=== PATIENT | female | born 1960 | race Caucasian/White ===

== ENCOUNTER 2017-01-16 09:49 | Observation (INO) ==
[2017-01-16] MEDS ORDERED: Ondansetron 4 MG/2 ML VIAL IV ONE (10:23)
[2017-01-16] MEDS ORDERED: *HR* Morphine 2 MG/ML SYRINGE IV ONE (10:23)
[2017-01-16] MEDS ORDERED: Aspirin 81 MG TAB.CHEW PO ONE (10:23)
[2017-01-16 10:35] LABS: INR 2.4; Prothrombin Time 26.3 Seconds (9.4-12.1)
[2017-01-16 10:36] LABS: Basophils # 0.1 K/mcL (0.0-0.2); Eosinophils # 0.1 K/mcL (0.0-0.6); Eosinophils % 0.9 %; Hematocrit 42.1 % (35.3-44.9); Hemoglobin 13.9 g/dL (11.5-15.4); Immature Granulocytes % 0.2 % (0-4); Lymphocytes # 0.7 K/mcL (0.6-4.6); Mean Corpuscular Hemoglobin 27.2 pg (28.0-33.3); Mean Corpuscular Volume 82.4 fL (83.0-100.0); Mean Platelet Volume 11.2 fL (9.4-12.4); Monocytes # 0.5 K/mcL (0.0-1.3); Monocytes % 7.8 %; Neutrophils # 4.5 K/mcL (1.6-8.9); Platelet Count 228 K/mcL (140-400); Red Blood Count 5.11 M/mcL (3.82-4.97); Red Cell Distribution Width 19.1 % (11.5-14.5); Segmented Neutrophils % 78.1 %
[2017-01-16 10:46] LABS: Alanine Aminotransferase 22 Units/L (0-55); Albumin 3.6 g/dL (3.5-5.0); Albumin/Globulin Ratio 0.9 (1.1-2.2); Alkaline Phosphatase 92 Units/L (38-126); Aspartate Amino Transferase 17 Units/L (5-34); BUN/Creatinine Ratio 11 (6-26); Bilirubin,Direct 0.3 mg/dL (0.0-0.5); Bilirubin,Indirect 0.4 mg/dL (0.0-1.2); Bilirubin,Total 0.7 mg/dL (0.2-1.2); Blood Urea Nitrogen 9 mg/dL (7-20); Calcium 9.2 mg/dL (8.6-10.8); Carbon Dioxide 24 mEq/L (19-29); Chloride 105 mEq/L (98-109); Globulin 3.9 g/dL (2.4-3.5); Glucose 97 mg/dL (70-99); Lipase 12 Units/L (8-78); Osmolality,Calculated 287 (280-300); Potassium 3.8 mEq/L (3.5-4.5); Sodium 139 mEq/L (136-145); Total Protein 7.5 g/dL (6.0-8.3); eGFR For African Americans > 60 (> 60); eGFR For Non-African Americans > 60 (> 60)
[2017-01-16] MEDS ORDERED: 0.9 % Sodium Chloride 1,000 ML IVC ONE (11:09)
[2017-01-16 11:34] LABS: Bilirubin,Urine Negative (Negative); Blood,Urine Negative (Negative); Clarity,Urine Cloudy (Clear); Color,Urine Dark Yellow (Yellow); Glucose,Urine (UA) Normal (Normal); Ketones,Urine Trace mg/dL (Negative); Leukocyte Esterase,Urine Small (Negative); Nitrite,Urine Positive (Negative); PH,Urine 7.5 pH Units (5.0-8.0); Protein,Urine Trace mg/dL (Neg-Trace); Specific Gravity,Urine 1.026 (1.010-1.025); Urobilinogen,Urine Normal (Normal)
[2017-01-16 11:37] LABS: Bacteria,Urine Many per hpf (None-Few); Squamous Epithelial Cell,Urine Many per lpf (None-Few); WBC,Urine 30-50 per hpf (0-3)
[2017-01-16 11:52] LABS: Mucus,Urine Few (Few); RBC,Urine 0-3 per hpf (0-3)
--- NOTE | 2017-01-16 12:18 | Emergency Department Note ---
Disposition Clinical Impression: Chest pain Qualifiers: Chest pain type: precordial pain Qualified Code(s): R07.2 - Precordial pain Disposition: Still a Patient Condition: Good Referrals: Nguyễn Avila MD [Primary Care Provider] - Forms: ED Satisfaction Letter Chest Pain HPI - General Chief Complaint: ED Chest Pain Stated Complaint: chest pain Time Seen by Provider: 01/16/17 10:12 Source: patient, family Mode of arrival: private vehicle Limitations: no limitations Vital Signs Reviewed: Yes Nursing Notes Reviewed: Yes - History of Present Illness Pt complaint: chest pain Onset (ago): Just [employer]ED [employer]MER Duration: constant Onset: during rest Pain Location: substernal Severity: severe Severity scale (1-10): 10 Quality: sharp Pain Radiation: RUE (shoulder) Improves with: nothing Worsens with: nothing Context: history of DVT/PE Associated symptoms: Reports: dyspnea (now resolved - lasted about 15 seconds). Denies: nausea, vomiting, diaphoresis, syncope, palpitations, fever, cough, leg swelling Treatments prior to arrival chest pain: none - Related Data On Oral Contraceptives: No Home Medications Medication Instructions Recorded Confirmed Citalopram Hydrobromide [Celexa] 40 mg PO DAILY 05/02/16 05/02/16 Diazepam [Valium] 5 mg PO TID PRN 05/02/16 05/02/16 Doxepin HCl 50 mg PO HS 05/02/16 05/02/16 Lisinopril-HCTZ 10-12.5 [Prinzide 1 each PO DAILY 05/02/16 05/02/16 10-12.5] Oxycodone HCl/Acetaminophen 1 each PO Q6H PRN 05/02/16 05/02/16 [Percocet 7.5-325 mg Tablet] Ranitidine HCl [Heartburn Relief] 150 mg PO DAILY 05/02/16 05/02/16 Warfarin [Coumadin] 5 mg PO DAILY 05/02/16 05/02/16 Previous Rx's Medication Instructions Recorded Ondansetron HCl [Zofran] 4 mg PO Q4HR PRN #10 tablet 09/01/16 Oxycodone HCl/Acetaminophen 1 each PO QID PRN #12 tablet 12/29/16 [Percocet 5-325 mg Tablet] Valacyclovir [Valtrex] 1,000 mg PO TID #42 tablet 12/29/16 Allergies Allergy/AdvReac Type Severity Reaction Status Date / Time iodine Allergy Hives Verified 01/16/17 10:00 NSAIDS (Non-Steroidal AdvReac Unknown See Verified 01/16/17 10:00 Anti-Inflamma Comments All systems ED: reviewed and negative except as stated. Constitutional: Denies: fever, chills, weakness Eyes: Denies: vision change ENT ED: Denies: congestion Cardiovascular: Reports: as per HPI, chest pain. Denies: palpitations, dyspnea on exertion, orthopnea, syncope Respiratory: Reports: as per HPI, dyspnea. Denies: cough, wheezes, hemoptysis, stridor, sputum production Gastrointestinal: Denies: abdominal pain, nausea, vomiting Genitourinary: Denies: urgency, dysuria, frequency Musculoskeletal: Denies: back pain, neck pain, joint swelling Integumentary: Denies: rash Neurological: Denies: headache, weakness, numbness, paresthesias, confusion, abnormal gait, vertigo Hematological/Lymphatic: Reports: easy bleeding, easy bruising Chest Pain PMH - Past Medical History Medical history: Reports: DVT, hyperlipidemia, hypertension Psychiatric history: Reports: anxiety OCCUPATIONAL HEALTH PHYSICIAN history: Reports: no OCCUPATIONAL HEALTH PHYSICIAN history - Social History Smoking Status: Never smoker Alcohol use: Reports: none Drug use: Reports: none Physical Exam - General Limitations: no limitations General appearance: alert, in no apparent distress, anxious - Head Head exam: atraumatic, normocephalic, normal inspection - Eye Eye exam: Present: normal appearance, PERRL. Absent: scleral icterus, conjunctival injection, periorbital swelling - ENT ENT exam: mucous membranes dry - Neck Neck exam: Present: normal inspection, full ROM, trachea midline. Absent: meningismus, lymphadenopathy - Chest Chest inspection: Present: normal inspection, symmetric chest wall rise - Respiratory Respiratory exam: Present: normal lung sounds bilaterally. Absent: respiratory distress, wheezes, stridor, accessory muscle use, prolonged expiratory phase - Cardiovascular Cardiovascular exam: Present: regular rate, normal rhythm, normal heart sounds - Abdominal Exam Abdominal exam: Present: soft, Non-Tender. Absent: mass, pulsatile mass - Extremities Exam Extremities exam: Present: normal capillary refill, pedal edema (mild) - Neurological Exam Neurological exam: Present: alert, oriented X3, CN II-XII intact - Psychiatric Psychiatric exam: Present: normal affect, anxious - Skin Skin exam: Present: warm, dry, intact, normal color Course Course Narrative: Patient has chest pain that began acutely this AM. She also felt short of breath for "about 15 seconds". She has never had a heart cath and was unable to complete a stress test x 2 due to back problems. We will treat her pain and check labs, ECG and CXR. Case has been discussed with Dr. Arthur. He will assume care of this patient at 11:00. Case admitted to /discussed w/ Dr Guerrero @ 1:35 pm; Vital Signs Temperature 98.2 F 01/16/17 09:52 Pulse Rate 100 01/16/17 09:52 Respiratory Rate 17 01/16/17 09:52 Blood Pressure 125/84 01/16/17 09:52 O2 Sat by Pulse Oximetry 98 01/16/17 09:52 Temperature 98.2 F 01/16/17 09:52 Pulse Rate 93 01/16/17 13:14 Respiratory Rate 18 01/16/17 13:14 Blood Pressure 115/84 01/16/17 13:14 O2 Sat by Pulse Oximetry 96 01/16/17 13:14 Oxygen Delivery Oxygen Delivery Room Air Chest Pain - Lab Data Result diagrams: 01/16/17 10:19 01/16/17 10:19 Lab Results 01/16/17 01/16/17 01/16/17 Range/Units 10:19 10:19 10:19 WBC (4.3-11.1) K/mcL RBC (3.82-4.97) M/mcL Hgb (11.5-15.4) g/dL Hct (35.3-44.9) % MCV (83.0-100.0) fL MCH (28.0-33.3) pg MCHC (31.6-35.5) g/dL RDW (11.5-14.5) % Plt Count (140-400) K/mcL MPV (9.4-12.4) fL Immature Gran % (0-4) % Seg Neutrophils % % Lymphocytes % % Monocytes % % Eosinophils % % Basophils % % Neutrophils # (1.6-8.9) K/mcL Lymphocytes # (0.6-4.6) K/mcL Monocytes # (0.0-1.3) K/mcL Eosinophils # (0.0-0.6) K/mcL Basophils # (0.0-0.2) K/mcL PT 26.3 H (9.4-12.1) Seconds INR 2.4 APTT 40.0 H (26.0-36.0) Seconds Sodium 139 (136-145) mEq/L Potassium 3.8 (3.5-4.5) mEq/L Chloride 105 (98-109) mEq/L Carbon Dioxide 24 (19-29) mEq/L BUN 9 (7-20) mg/dL Creatinine 0.80 (0.57-1.11) mg/dL Est GFR ( Amer) > 60 (> 60) Est GFR (Non-Af Amer) > 60 (> 60) BUN/Creatinine Ratio 11 (6-26) Glucose 97 (70-99) mg/dL Calculated Osmolality 287 (280-300) Calcium 9.2 (8.6-10.8) mg/dL Total Bilirubin 0.7 (0.2-1.2) mg/dL Direct Bilirubin 0.3 (0.0-0.5) mg/dL Indirect Bilirubin 0.4 (0.0-1.2) mg/dL AST 17 (5-34) Units/L ALT 22 (0-55) Units/L Alkaline Phosphatase 92 (38-126) Units/L Troponin I (0-0.03) ng/mL B-Natriuretic Peptide 11 (0-100) pg/mL Serum Total Protein 7.5 (6.0-8.3) g/dL Albumin 3.6 (3.5-5.0) g/dL Globulin 3.9 H (2.4-3.5) g/dL Albumin/Globulin Ratio 0.9 L (1.1-2.2) Lipase 12 (8-78) Units/L Ur Specimen Adequacy Urine Color (Yellow) Urine Clarity (Clear) Urine pH (5.0-8.0) pH Units Ur Specific [place] (1.010-1.025) Urine Protein (Neg-Trace) mg/dL Urine Glucose (UA) (Normal) mg/dL Urine Ketones (Negative) mg/dL Urine Blood (Negative) Urine Nitrite (Negative) Urine Bilirubin (Negative) Urine Urobilinogen (Normal) mg/dL Ur Leukocyte Esterase (Negative) Urine Microscopic RBC (0-3) per hpf Urine Microscopic WBC (0-3) per hpf Ur Squamous Epith Cells (None-Few) per lpf Urine Bacteria (None-Few) per hpf Hyaline Casts Urine Mucus (Few) Ur Culture Indicated? (NO) 01/16/17 01/16/17 01/16/17 Range/Units 10:19 10:19 11:20 WBC 5.8 (4.3-11.1) K/mcL RBC 5.11 H (3.82-4.97) M/mcL Hgb 13.9 (11.5-15.4) g/dL Hct 42.1 (35.3-44.9) % MCV 82.4 L (83.0-100.0) fL MCH 27.2 L (28.0-33.3) pg MCHC 33.0 (31.6-35.5) g/dL RDW 19.1 H (11.5-14.5) % Plt Count 228 (140-400) K/mcL MPV 11.2 (9.4-12.4) fL Immature Gran % 0.2 (0-4) % Seg Neutrophils % 78.1 % Lymphocytes % 12.0 % Monocytes % 7.8 % Eosinophils % 0.9 % Basophils % 1.0 % Neutrophils # 4.5 (1.6-8.9) K/mcL Lymphocytes # 0.7 (0.6-4.6) K/mcL Monocytes # 0.5 (0.0-1.3) K/mcL Eosinophils # 0.1 (0.0-0.6) K/mcL Basophils # 0.1 (0.0-0.2) K/mcL PT (9.4-12.1) Seconds INR APTT (26.0-36.0) Seconds Sodium (136-145) mEq/L Potassium (3.5-4.5) mEq/L Chloride (98-109) mEq/L Carbon Dioxide (19-29) mEq/L BUN (7-20) mg/dL Creatinine (0.57-1.11) mg/dL Est GFR ( Amer) (> 60) Est GFR (Non-Af Amer) (> 60) BUN/Creatinine Ratio (6-26) Glucose (70-99) mg/dL Calculated Osmolality (280-300) Calcium (8.6-10.8) mg/dL Total Bilirubin (0.2-1.2) mg/dL Direct Bilirubin (0.0-0.5) mg/dL Indirect Bilirubin (0.0-1.2) mg/dL AST (5-34) Units/L ALT (0-55) Units/L Alkaline Phosphatase (38-126) Units/L Troponin I 0.00 (0-0.03) ng/mL B-Natriuretic Peptide (0-100) pg/mL Serum Total Protein (6.0-8.3) g/dL Albumin (3.5-5.0) g/dL Globulin (2.4-3.5) g/dL Albumin/Globulin Ratio (1.1-2.2) Lipase (8-78) Units/L Ur Specimen Adequacy See below A Urine Color Dark Yellow (Yellow) Urine Clarity Cloudy A (Clear) Urine pH 7.5 (5.0-8.0) pH Units Ur Specific [place] 1.026 H (1.010-1.025) Urine Protein Trace (Neg-Trace) mg/dL Urine Glucose (UA) Normal (Normal) mg/dL Urine Ketones Trace H (Negative) mg/dL Urine Blood Negative (Negative) Urine Nitrite Positive A (Negative) Urine Bilirubin Negative (Negative) Urine Urobilinogen Normal (Normal) mg/dL Ur Leukocyte Esterase Small H (Negative) Urine Microscopic RBC 0-3 (0-3) per hpf Urine Microscopic WBC 30-50 H (0-3) per hpf Ur Squamous Epith Cells Many H (None-Few) per lpf Urine Bacteria Many H (None-Few) per hpf Hyaline Casts Test Not Performed Urine Mucus Few (Few) Ur Culture Indicated? YES A (NO) Attestation Statement - Attestation Attestation: DR Arthur note: Pt seen in conjunction w/ PA Meagan Staton; Please see her charting for complete documentation; I agree w/ pt's treatment and disposition and spent face to face time w/ the pt; Troponin results revieiwed; Chest pain to rt arm onset approx 9 a.m; pain free on arrival; ekg w/o acute injury pattern;
[2017-01-16] MEDS ORDERED: *HR* OxyCODONE/APAP 10/325 TABLET PO PRN (15:23)
[2017-01-16] MEDS ORDERED: Naloxone 0.4 MG/ML INJ IVP PRN (15:29)
[2017-01-16] MEDS ORDERED: Ondansetron 4 MG/2 ML VIAL IVP PRN (15:29)
[2017-01-16] MEDS ORDERED: Acetaminophen 325 MG TABLET PO PRN (15:29)
[2017-01-16] MEDS ORDERED: *HR* Warfarin 2.5 MG TABLET PO SCH ×2 (15:30→18:00)
[2017-01-16] MEDS ORDERED: Nitroglycerin 0.4 MG TAB.SUBL SL PRN (16:24)
[2017-01-16] MEDS ORDERED: *HR* Morphine 2 MG/ML SYRINGE IVP PRN (16:27)
--- NOTE | 2017-01-16 16:37 | Internal Med History&Physical ---
Date of Encounter: 01/16/17 Time of Encounter: 16:32 Assessment and Plan (1) Chest pain Current visit: Yes Status: Acute Given positive family history will rule out ACS f/u serial TNI No EKG changes reported ASA, Statin Pt not on BB and currently rate controlled given history of Afib, if becomes tachycardic, will add BB Nuclear stress test in am NPO after midnight Nitroglycerin SL prn chest pain Morphine IV prn chest pain not relieved by nitroglycerin O2 supplementation as needed. Will consider cardiology evaluation if chest test is abnormal Qualifiers: Chest pain type: precordial pain Qualified Code(s): R07.2 - Precordial pain (2) Hypertension Current visit: Yes Status: Chronic BP within acceptable range continue home medications Qualifiers: Hypertension type: essential hypertension Qualified Code(s): I10 - Essential (primary) hypertension (3) Atrial fibrillation Current visit: Yes Status: Chronic Rate controlled, not reported to be on BB if becomes tachycardic, will add BB anticoagulated with Coumadin Will continue home dose of Coumadin and monitor INR (Goal INR: 2-3) Qualifiers: Atrial fibrillation type: chronic Qualified Code(s): I48.2 - Chronic atrial fibrillation (4) On anticoagulant therapy Current visit: Yes Status: Acute (5) Hyperlipidemia Current visit: Yes Status: Chronic continue home medications Qualifiers: Hyperlipidemia type: unspecified Qualified Code(s): E78.5 - Hyperlipidemia , unspecified (6) DVT prophylaxis Current visit: Yes Status: Acute anticoagulated with Coumadin (7) Morbid obesity Current visit: Yes Status: Chronic Qualifiers: Obesity type: unspecified obesity type Qualified Code(s): E66.01 - Morbid ( severe) obesity due to excess calories (8) Chronic back pain Current visit: Yes Status: Chronic Continue home pain medications for back pain Qualifiers: Back pain location: back pain in unspecified location Back pain laterality : unspecified Qualified Code(s): M54.9 - Dorsalgia, unspecified; G89.29 - Other chronic pain Internal Medicine - H&P: HPI Chief complaint: chest pain Admitted From: Home Plans for Post Hospital Care: Home History of present illness: Ms. Bay is a 56 year old female with PMH of hypertension, hyperlipidemia, atrial fibrillation on coumadin, chronic back pain, and morbid obesity who is admitted for evaluation of chest pain. Patient states she was resting in chair earlier this morning when she had a sudden onset of sharp substernal chest pain with radiation to the right arm, associated with dyspnea and diaphoresis. She states the sharp pain abruptly subsided but she continued to feel heaviness on her substernal chest wall due to which she came to the hospital. She reports of improvement in her pain after receiving the morphine in the ER. She reports of family history of heart disease, with her mother having an CA at age 50. At this time she is resting in bed and states her pain is well controlled and its reproducible with movement. Denies any shortness of breath, lightheadedness, dizziness, nausea, or vomiting at this time. She was also noted to have positive UA but denies any dysuria or urinary symptoms at this time. Past Med Surg Social Fam HX - Past Medical History Medical history: DVT, hyperlipidemia, hypertension Psychiatric history: anxiety - Past Surgical History Surgical History: cholecystectomy, hysterectomy - Social History Smoking Status: Never smoker Smokeless Tobacco Status: No Alcohol use: none Drug use: none - Family History Mother Age: 75 Living Status: Still Living Hx Family Cardiac Disorders: Yes Father Age: 78 Living Status: Still Living Hx Family Respiratory Disorders: Yes (Emphazemia) Internal Medicine - H&P: Meds Citalopram Hydrobromide [Celexa] 40 mg PO DAILY 05/02/16 [History] Lisinopril-HCTZ 10-12.5 [Prinzide 10-12.5] 1 tab PO DAILY 05/02/16 [History] Warfarin [Coumadin] 5 mg PO SUWE 05/02/16 [History] Mv,Ca,Min/Folic Acid/Vit K1 [One-A-Day Women's 50 Plus Tab] 1 tab PO DAILY 01/16 [History] OxyCODONE/APAP 10/325 [Percocet 10/325 MG] 1 tab PO Q12H PRN 01/16/17 [History] Pravastatin Sodium [Pravastatin Sodium] 40 mg PO DAILY 01/16/17 [History] Warfarin [Coumadin] 2.5 mg PO MOTUTHFRSA 01/16/17 [History] Allergies iodine Allergy (Verified 01/16/17 13:43) Anaphylaxis NSAIDS (Non-Steroidal Anti-Inflamma Adverse Reaction (Unknown, Verified 03/09/ 17 13:43) Gastrointestinal Upset All Systems PM: A 10-system review of systems was performed and is negative for pertinent findings except as documented above in the HPI. - Constitutional Constitutional: as per HPI - Constitutional Vitals: Temp Pulse Resp BP Pulse Ox 98.2 F 83 16 136/84 95 01/16/17 15:49 01/16/17 15:49 01/16/17 15:49 01/16/17 15:49 01/16/17 16:15 General appearance: Present: A&O X 3, morbidly obese, no acute distress, answers questions appropriately - Head Head exam: Present: atraumatic, normocephalic - Eye Eye exam: Present: normal appearance, conjuntiva pink, sclera anicteric - Respiratory Respiratory exam: Present: CTAB. Absent: accessory muscle use, rales, rhonchi, wheezes - Cardiovascular Cardiovascular exam: Present: RRR, +S1, +S2. Absent: diastolic murmur, gallop, rubs, systolic murmur - GI/Abdominal GI/Abdominal exam: Present: normal bowel sounds, soft, no peritoneal signs. Absent: distended, tenderness - Extremities Exam Extremities exam: Present: warm, radial pulses palpable and symetrical. Absent : calf tenderness, cyanotic, pedal edema - Neurological Exam Neurological exam: Present: alert, oriented X3 - Psychiatric Psychiatric exam: Present: normal affect, normal mood Internal Med - H&P Results - Labs CBC & Chem 7: 01/16/17 10:19 01/16/17 10:19
--- NOTE | 2017-01-17 01:57 | Event Note ---
Date of Encounter: 01/17/17 Time of Encounter: 01:57 Was paged by patient's nurse concerning her refusal for stress test in the morning. She states that she is allergic to the contrast dye as claims to have tried to get a nuclear stress test in the past and could not tolerate the both the dye and medications that were administered prior to the test. In addition, she states that she is unable to perform the exercise stress test due to chronic back and leg pain. Patient just came back from echocardiogram and is in no active chest pain right now. I will cancel the stress test order at this point.
[2017-01-17 04:44] LABS: INR 2.2; Prothrombin Time 24.2 Seconds (9.4-12.1)
[2017-01-17 04:46] LABS: Basophils # 0.1 K/mcL (0.0-0.2); Basophils % 1.4 %; Eosinophils % 0.6 %; Hematocrit 36.5 % (35.3-44.9); Immature Granulocytes % 0.3 % (0-4); Lymphocytes % 29.2 %; Mean Corpuscular HGB Conc 33.2 g/dL (31.6-35.5); Mean Corpuscular Hemoglobin 28.3 pg (28.0-33.3); Mean Corpuscular Volume 85.3 fL (83.0-100.0); Mean Platelet Volume 12.6 fL (9.4-12.4); Monocytes # 0.6 K/mcL (0.0-1.3); Monocytes % 16.7 %; Neutrophils # 1.8 K/mcL (1.6-8.9); Platelet Count 171 K/mcL (140-400); Red Blood Count 4.28 M/mcL (3.82-4.97); Red Cell Distribution Width 19.1 % (11.5-14.5); Segmented Neutrophils % 51.8 %
[2017-01-17 04:48] LABS: Hemoglobin 12.1 g/dL (11.5-15.4)
[2017-01-17 05:02] LABS: Magnesium 1.7 mg/dL (1.6-2.6); Phosphorous 3.2 mg/dL (2.3-4.7)
[2017-01-17 05:04] LABS: BUN/Creatinine Ratio 13 (6-26); Blood Urea Nitrogen 10 mg/dL (7-20); Calcium 8.2 mg/dL (8.6-10.8); Carbon Dioxide 24 mEq/L (19-29); Chloride 104 mEq/L (98-109); Glucose 86 mg/dL (70-99); Osmolality,Calculated 282 (280-300); Potassium 3.7 mEq/L (3.5-4.5); Sodium 137 mEq/L (136-145); eGFR For African Americans > 60 (> 60); eGFR For Non-African Americans > 60 (> 60)
--- NOTE | 2017-01-17 06:55 | ECHO - Doppler Report ---
Echocardiogram Name: Hanna Bay Date of Study: 01/16/2017 Date: 1960 Ht: 70.0 in Medical Record#: [id number] Age: 56 Wt: 262.0 lb Gender: Female BSA: 2.34 Order #: [id number] Location: [facility] Room #: 3B Reading Physician: Escobar Mcbride MD, [facility] Epic Ambulatory Analysts: Daya Ponce RDCS Ordering Physician: Aspen Xie MD Primary Physician: Nguyễn Avila MD Indications: Evaluate LVEF, R/O WMA Impressions: Normal LV systolic function, LVEF 60%. Mild left ventricular diastolic dysfunction. No significant valvular dysfunction. No evidence of pulmonary hypertension. Left Ventricular Wall Motion: Rest Echo Findings All wall segments showed normal motion. Findings: Study Quality * Technically adequate exam. ECG Findings * Normal sinus rhythm. Left Ventricle * Normal LV systolic function, LVEF 60%. * Normal LV chamber size and wall thickness. * Mild left ventricular diastolic dysfunction. Right Ventricle * Normal right ventricular size and function. Left Atrium * Normal left atrial size. Right Atrium * Normal right atrial size. Aorta * Normally sized aortic root. Pericardium * There is no pericardial effusion present. IVC * The IVC is not dilated. Tricuspid Valve * Normal tricuspid valve structure. * No tricuspid stenosis. * Trace tricuspid regurgitation. * No evidence of pulmonary hypertension. Pulmonic Valve * Pulmonic valve is not well visualized. * No pulmonic stenosis. * No pulmonic regurgitation. Aortic Valve * Trileaflet aortic valve. * No aortic stenosis. * No aortic regurgitation. Mitral Valve * Normal mitral valve structure. * No mitral stenosis. * No mitral regurgitation. History Hypertension Hypercholesteremia Family History of CAD 04/18/2016 a Previous Echo was performed. Measurements: BP: 122/ 83 2D Normal Values RVIDd: 3.11 cm IVSd: .78 cm 0.6 - 1.0 cm LVIDd: 5.56 cm 3.7 - 5.6 cm LVPWd: .90 cm 0.6 - 1.1 cm LVIDs: 2.93 cm 1.5 - 3.6 cm AO: 3.50 cm < 4.0 cm %FS: 47.30 cm >25 % LA volume: 50 Mitral Valve Peak E:.87 m/sec Peak A:1.11 m/sec E/A Ratio:0.8 Peak E' Lat [place]:12.8 cm/s Peak E' Med [place]:8.81 cm/s E/E' Lat Ratio:6.8 E/E' Med Ratio:9.9 Tricuspid Valve TV Regurg Peak Grad: 25.00mmHg TV Regurg Peak [place]: 2.49m/sec Updated by Escobar Mcbride MD, [facility] on 01/17/2017 6:50:39 AM electronically signed on 01/17/2017 6:51:12 AM with status of Final Wall Motion [place]: 1=Normal, 2=Hypokinesis, 3=Akinesis, 4=Dyskinesis, 5=Aneurysmal, 6=Hyperkinetic, X=Not Visualized (Blank)=Missing
[2017-01-17 07:14] VITALS: BP 150/86
--- NOTE | 2017-01-17 10:40 | Discharge Summary ---
Date of Encounter: 01/17/17 Time of Encounter: 10:38 - Discharge Diagnosis (1) Chest pain Priority: Primary Status: Resolved Qualifiers: Chest pain type: precordial pain Qualified Code(s): R07.2 - Precordial pain (2) Hypertension Priority: Secondary Status: Chronic Qualifiers: Hypertension type: essential hypertension Qualified Code(s): I10 - Essential (primary) hypertension (3) On anticoagulant therapy Priority: Secondary Status: Chronic Comments: ON coumadin for history of PE and DVT (4) Hyperlipidemia Priority: Secondary Status: Chronic Qualifiers: Hyperlipidemia type: unspecified Qualified Code(s): E78.5 - Hyperlipidemia , unspecified (5) DVT prophylaxis Priority: Secondary Status: Acute (6) Morbid obesity Priority: Secondary Status: Chronic Qualifiers: Obesity type: unspecified obesity type Qualified Code(s): E66.01 - Morbid ( severe) obesity due to excess calories (7) Chronic back pain Priority: Secondary Status: Chronic Qualifiers: Back pain location: back pain in unspecified location Back pain laterality : unspecified Qualified Code(s): M54.9 - Dorsalgia, unspecified; G89.29 - Other chronic pain - Discharge Medications Prescriptions: Ciprofloxacin/Ciprofloxa HCl [Cipro Xr 1,000 mg Tablet] 1,000 mg PO DAILY #4 tbmp.24hr Home Medications: Citalopram Hydrobromide [Celexa] 40 mg PO DAILY 05/02/16 [History] Lisinopril-HCTZ 10-12.5 [Prinzide 10-12.5] 1 tab PO DAILY 05/02/16 [History] Warfarin [Coumadin] 5 mg PO SUWE 05/02/16 [History] Mv,Ca,Min/Folic Acid/Vit K1 [One-A-Day Women's 50 Plus Tab] 1 tab PO DAILY 01/16 [History] OxyCODONE/APAP 10/325 [Percocet 10/325 MG] 1 tab PO Q12H PRN 01/16/17 [History] Pravastatin Sodium 40 mg PO DAILY 01/16/17 [History] Warfarin [Coumadin] 2.5 mg PO MOTUTHFRSA 01/16/17 [History] Ciprofloxacin/Ciprofloxa HCl [Cipro Xr 1,000 mg Tablet] 1,000 mg PO DAILY #4 tbmp.24hr 01/17/17 [Rx] Allergies/Adverse Reactions: Allergies iodine Allergy (Verified 01/16/17 13:43) Anaphylaxis NSAIDS (Non-Steroidal Anti-Inflamma Adverse Reaction (Unknown, Verified 13:43) Gastrointestinal Upset Procedures/tests Complete & Pending: Procedures Performed prior 72 hours Category Date Time Status EV echocardiogram Stat Y 01/16/17 16:31 Completed Date of admission: 01/16/17 14:12 Primary care physician: Nguyễn Avila Discharging clinician: Aspen Xie Anticipated date of discharge: 01/17/17 - Patient Status Disposition: Home, Self-Care Condition: Good Functional capacity at discharge: independent ambulation Overall status at discharge: patient is back to baseline - Discharge Instructions Follow Up With: Nguyễn Avila MD [Primary Care Provider] - Additional Instructions: Follow-up with your primary care physician within one week after your discharge from the hospital. Follow up with your systems administration analyst within one week after your discharge from the hospital. Continue to take ciprofloxacin as prescribed. Continue your home medications as prescribed by your primary care physician. Please seek medical help if chest pain reoccurs. Hospital course: Ms. Bay is a 56 year old female with past medical history of hypertension, hyperlipidemia, PE/DVT on anticoagulation therapy with Coumadin, chronic back pain, and morbid obesity who was admitted for evaluation of chest pain. Patient had negative serial troponins and no EKG changes. Her chest pain resolved and she refused nuclear stress test this morning. She was also noted to have a urinary tract infection during this hospitalization. Her urinary cultures were positive for gram-negative rods for which she will continue oral antibiotic treatment at home. Patient understands the risks of refusing a nuclear stress test and states she will follow-up with her primary care physician as an outpatient. At this time she will discharged home with follow- up with her PCP and continuation of oral antibiotics for her UTI. - Time Spent with Patient Total time spent providing and/or coordinating discharge services: Less than 30 minutes - Constitutional Vitals: Temp Pulse Resp BP Pulse Ox 98.0 F 84 17 150/86 93 L 01/17/17 07:12 01/17/17 07:12 01/17/17 07:12 01/17/17 07:12 01/17/17 07:39 General appearance: Present: A&O X 3, morbidly obese, no acute distress, answers questions appropriately. Absent: cooperative - Head Head exam: Present: atraumatic, normocephalic - Eye Eye exam: Present: normal appearance, conjuntiva pink, sclera anicteric - Respiratory Respiratory exam: Present: CTAB. Absent: accessory muscle use, rales, rhonchi, wheezes - Cardiovascular Cardiovascular exam: Present: RRR, +S1, +S2. Absent: diastolic murmur, gallop, rubs, systolic murmur - GI/Abdominal GI/Abdominal exam: Present: normal bowel sounds, soft, no peritoneal signs. Absent: distended, tenderness - Extremities Exam Extremities exam: Present: warm, radial pulses palpable and symetrical. Absent : calf tenderness, cyanotic, pedal edema - Neurological Exam Neurological exam: Present: alert, oriented X3 - Psychiatric Psychiatric exam: Present: normal affect, normal mood
--- NOTE | 2017-01-17 17:49 | Electrocardiograph Report ---
[place] [id number] Test Date: 2017-01-16 Pat Name: Hanna Bay Department: 102 Room: [facility] Gender: F Government Teacher: : 1960 Requested By: Meagan Staton Order Number: [id number] Reading MD: Birdie Swain Measurements Intervals Gregory Rate: 98 P: 45 OR: 146 QRS: 13 QRSD: 81 T: 67 QT: 300 QTc: 356 Interpretive Statements SINUS RHYTHM NONSPECIFIC T-WAVE ABNORMALITY Electronically Signed On 01-17-2017 17:47:14 EST by Birdie Swain
[2017-01-19] MEDS ORDERED: *HR* Warfarin 5 MG TABLET PO SCH (18:00)
== END 2017-01-17 11:04 | disposition home or self-care (01) ==
LOC: 3BNU 09:49 → EMEROO 09:49 → SUATTDRO 14:12 → 3BNU 15:41
PROVIDERS: ADMIT Internal Medicine; ATTEND Internal Medicine

== ENCOUNTER 2017-05-19 09:14 | Inpatient (IN) ==
--- NOTE | 2017-05-18 21:39 | Discharge Summary ---
<Meagan Nation - Last Filed: 05/18/17 21:37> Date of Encounter: 05/18/17 - Discharge Diagnosis (1) Arthritis of right knee Priority: Primary Status: Chronic (2) Factor V Leiden Priority: Secondary Status: Chronic (3) History of DVT (deep vein thrombosis) Priority: Secondary Status: Chronic (4) intermediate card tender current use of anticoagulant Priority: Secondary Status: Chronic Comments: Warfarin - bridged on Lovenox (5) Hypertension Priority: Secondary Status: Chronic Qualifiers: Hypertension type: unspecified Qualified Code(s): I10 - Essential (primary ) hypertension - Discharge Medications Home Medications: Citalopram Hydrobromide [Celexa] 40 mg PO DAILY 05/02/16 [History] Pravastatin Sodium 40 mg PO DAILY 01/16/17 [History] Doxepin HCl 50 mg PO HS PRN 05/19/17 [History] Enoxaparin [Lovenox] 120 mg SQ Q12HR 05/19/17 [History] Lisinopril-HCTZ 10-12.5 [Prinzide 10-12.5] 1 tab PO DAILY 05/19/17 [History] Oxycodone HCl/Acetaminophen [Percocet 10-325 mg Tablet] 1 tab PO Q6H PRN [History] Warfarin [Coumadin] 2 mg PO SUTUWETHFRSA 05/19/17 [History] Warfarin [Coumadin] 4 mg PO MO 05/19/17 [History] Allergies/Adverse Reactions: Allergies NSAIDS (Non-Steroidal Anti-Inflamma Adverse Reaction (Unknown, Verified 14:46) Gastrointestinal Upset iodine Adverse Reaction (Verified 05/19/17 10:38) Rash Primary care physician: Nguyễn Avila - Patient Status Disposition: Home, Self-Care Condition: Good - Discharge Instructions Follow Up With: Nguyễn Avila MD [Primary Care Provider] - - Hospital Course Hospital course: Ms. Bay is a 57 year old female - Time Spent with Patient Total time spent providing and/or coordinating discharge services: - VTE Reasons for not Prescribing Prophylaxis: Not indicated-Anticoagulated or INR therapeutic Documentation of Mechanical Device: Venous foot pump, device <Jose R Larsen - Last Filed: 05/22/17 07:56> Date of Encounter: 05/22/17 Time of Encounter: 07:55 - Discharge Diagnosis (1) Status post total right knee replacement Priority: Primary Status: Acute (2) Hypertension Priority: Secondary Status: Chronic Qualifiers: Hypertension type: unspecified Qualified Code(s): I10 - Essential (primary ) hypertension (3) Hyperlipidemia Priority: Secondary Status: Chronic Qualifiers: Hyperlipidemia type: unspecified Qualified Code(s): E78.5 - Hyperlipidemia , unspecified (4) Morbid obesity Priority: Secondary Status: Chronic (5) Chronic back pain Priority: Secondary Status: Chronic Qualifiers: Back pain location: back pain in unspecified location Back pain laterality : unspecified Qualified Code(s): M54.9 - Dorsalgia, unspecified; G89.29 - Other chronic pain (6) Arthritis of right knee Priority: Primary Status: Chronic (7) Factor V Leiden Priority: Secondary Status: Chronic (8) History of DVT (deep vein thrombosis) Priority: Secondary Status: Chronic (9) intermediate current use of anticoagulant Priority: Secondary Status: Chronic (10) Acute blood loss anemia Priority: Primary Status: Acute Primary care physician: Nguyễn Avila - Patient Status Functional capacity at discharge: uses cane/walker Overall status at discharge: patient is progressing back to baseline - Hospital Course Hospital course: Ms. Bay is a 57 year old female Status post right total knee replacement. Patient with a clotting factor disorder. Had a Doppler scan to rule out deep vein thrombosis is which was negative. The patient had an uneventful postoperative course. They received antibiotics and physical therapy and were discharged in stable condition. There will follow -up in the office in 2 weeks. Patient on chronic DVT prophylaxis. - Time Spent with Patient Total time spent providing and/or coordinating discharge services:
[2017-05-19] MEDS ORDERED: CeFAZolin Pre 2,000 MG/100 ML 2,000 MG/100 ML BAG IVPB ONE (09:32)
[2017-05-19] MEDS ORDERED: Lidocaine -MPF 1% 2 ML VIAL ID ONE (09:32)
[2017-05-19] MEDS ORDERED: Albuterol 2.5 MG/3 ML NEBULIZER IH ONE (09:32)
[2017-05-19] MEDS ORDERED: Albuterol 2.5 MG/3 ML NEBULIZER ONE (09:35)
[2017-05-19] MEDS ORDERED: Ringers Solution, Lactated 1,000 ML IVC SCH ×2 (09:45→14:02)
--- NOTE | 2017-05-19 10:11 | History & Physical Report ---
Date of Encounter: 05/19/17 Time of Encounter: 10:11 24 Hour HP Update - Instructions Instructions: If the History and Physical is less than 30 days old and was completed prior to A.M. admission and or procedure and has NOT been updated on calendar day of procedure please complete this update prior to performing procedure. - Update Patient reports changes in Medical Condition: No Changes in examination, assessment, or condition: No Changes in Medication: No Preop tests/diagnostics Reviewed: Yes Surgery Remains Indicated: Yes Consent for Planned Operative Procedure(s) Verified: Yes - Pre-Operative Checklist Preoperative Checklist Indicated: No Prophylactic Antibiotic Ordered: Yes Is VTE Prophylaxis Indicated?: Yes
[2017-05-19] MEDS ORDERED: Gabapentin 300 MG CAPSULE PO ONE (10:16)
[2017-05-19] MEDS ORDERED: Famotidine 20 MG/2 ML VIAL IVP ONE (10:16)
[2017-05-19] MEDS ORDERED: *HR* Propofol 200 MG/20 ML VIAL IVP ONE (10:31)
[2017-05-19] MEDS ORDERED: Lidocaine -MPF 2% 2 ML VIAL ONE (10:31)
[2017-05-19] MEDS ORDERED: *HR* FentaNYL (PF) 100 MCG/2 ML VIAL ONE (10:31)
[2017-05-19] MEDS ORDERED: *HR* Midazolam HCl 2 MG/2 ML VIAL ONE (10:31)
[2017-05-19] MEDS ORDERED: Dexamethasone 4 MG/ML VIAL ONE (10:33)
[2017-05-19] MEDS ORDERED: Ondansetron 4 MG/2 ML VIAL ONE (10:33)
--- NOTE | 2017-05-19 10:49 | Anesthesia Evaluation PreOp ---
Date of Encounter: 05/19/17 Time of Encounter: 10:45 - Past History Planned Operation: Rt TKA Cardiac History: HTN, Hyperlipidemia, Other (Hx DVT took Lovenox last night) Pulmonary History: Asthma, MADINA Dx EARLY CHILDHOOD History: Denies Any Significant HX Other Medical History: Other (Obese) : No Alcohol Use: none Drug use: none Medications and Allergies Citalopram Hydrobromide [Celexa] 40 mg PO DAILY 05/02/16 [History] Pravastatin Sodium 40 mg PO DAILY 01/16/17 [History] Doxepin HCl 50 mg PO HS PRN 05/19/17 [History] Enoxaparin [Lovenox] 120 mg SQ Q12HR 05/19/17 [History] Lisinopril-HCTZ 10-12.5 [Prinzide 10-12.5] 1 tab PO DAILY 05/19/17 [History] Oxycodone HCl/Acetaminophen [Percocet 10-325 mg Tablet] 1 tab PO Q6H PRN [History] Warfarin [Coumadin] 2 mg PO SUTUWETHFRSA 05/19/17 [History] Warfarin [Coumadin] 4 mg PO MO 05/19/17 [History] Allergies NSAIDS (Non-Steroidal Anti-Inflamma Adverse Reaction (Unknown, Verified 14:46) Gastrointestinal Upset iodine Adverse Reaction (Verified 05/19/17 10:38) Rash - Meds/Allergy Pre-op Review Medications Reviewed: Yes Allergies Reviewed: Yes Beta Blockers on Current Med List: No Anesthesia Results - Labs Laboratory Tests 01/17/17 05/05/17 03:51 14:45 Hgb 12.1 D Hct 36.5 Plt Count 171 Sodium 140 Potassium 4.4 BUN 11 Creatinine 0.78 - Imaging EKG: report reviewed Anesthesia Exam O2 Sat Height 1.78 m Height 1.78 m Height 1.78 m Weight 113.852 kg Weight 113.852 kg Weight 113.852 kg O2 Sat by Pulse Oximetry 97 Vital Signs Temp Pulse Resp BP Pulse Ox 97.9 F 82 18 126/83 97 05/19/17 09:33 05/19/17 09:33 05/19/17 09:33 05/19/17 09:33 05/19/17 09:33 Height: 5'10 Weight: 251 lbs NPO (# of Hours): MN Pain Scale: 0 - HEENT Pupil (Motor): Pupils equal, EOMI Mallampati: III Teeth: Normal Oral Opening: Less than or equal to 3 - EARLY CHILDHOOD LOC: Oriented EARLY CHILDHOOD Motor: Normal RUE, Normal LUE, Normal RLE, Normal LLE, Normal Face EARLY CHILDHOOD Sensory: Normal: RUE, LUE, RLE, LLE, Face - Cardiac Rhythm: Regular Murmur: None JVD: No Carotid Bruit: No - Pulmonary Breath Sounds: bilateral Clear Respiratory Effort: Symmetrical Anesthesia Assess/Plan ASA Score: 2 Modified Tommy Scale for Level of Consciousness: Cooperative, oriented, and tranquil Anesthetic Plan: General, Regional Monitoring Plan: Standard Monitors Recovery Plan: PACU (Discussed GA and RA, agrees to proceed)
[2017-05-19] MEDS ORDERED: ROPIVACAINE HCL/PF 0.5% 30 ML VIAL ONE (10:57)
[2017-05-19] MEDS ORDERED: Bupivacaine-MPF 0.25% 10 ML VIAL ONE (11:01)
--- NOTE | 2017-05-19 11:26 | Anesthesia Procedures ---
Date of Encounter: 05/19/17 Time of Encounter: 11:24 Procedures: Anesthesia - Nerve Block Procedure Date: 05/19/17 Time: 11:24 Allergies/Adv Reactions: Allergies NSAIDS (Non-Steroidal Anti-Inflamma Adverse Reaction (Unknown, Verified 14:46) Gastrointestinal Upset iodine Adverse Reaction (Verified 05/19/17 10:38) Rash Pre-op Diagnosis: right knee OA Surgical Procedure: right tka Checklist: Correct Patient Identifier, Correct procedure, History checked Correct side: Right Blood Thinner: Yes (lovenox last dose yesterday) Monitor Applied: EKG, BP, Pulse Oximetry Supplemental Oxygen via Nasal Cannula (L/min): 2 Sedation: Versed (mg): 2 Sedation: Fentanyl (mcg): 100 Indication: Post Op Analgesia Pre-op Neuro Deficits: No Block Type: Femoral (30cc 0.5% rop), Other (iPACK 20cc 0.25% bup) Catheter placed: No Sterile Technique: Yes Ultrasound used: Yes Anatomy identified: Yes Visual spread of Local: Yes Neuro Stimulation: Yes Nerve Stimulator Range: 0.2 - 0.4 mA Blood on Needle Aspiration: No Smooth Injection of Local: Yes Pain with Injection of Local: No Prep: Chlorhexadine Needle: 22 x 50 mm Stimuplex (femoral), 21 x 100 mm Stimuplex (iPACK) Local: Ropivacaine, Other Volume (cc): 50 Number of Attempts: 1 Complications: None/effective block
[2017-05-19] MEDS ORDERED: EPHEDrine 50 MG/ML VIAL ONE (12:04)
--- NOTE | 2017-05-19 12:20 | Orthopedic Operative Note ---
Date of procedure: 05/19/17 Pre-op diagnosis: Right knee arthritis Post-op diagnosis: same Procedure: Procedure: Right Total knee replacement Estimated blood loss: 300 cc Hardware: Metal and polyethylene replacement. Arthrex Femur: 7 Tibia: 7 PS insert: 14 Patella: 37 Exam Under anesthesia: Loss of full extension 15 degrees flexion 100 degrees no instability Procedural Notes: Grade 4 arthritic changes all 3 compartments Operative procedure: The patient was brought to the operating room and placed on the operating room table. After general anesthesia was administered the operative knee was examined. Findings were noted in the exam under anesthesia. The operative extremity was prepped and draped in sterile surgical fashion. The patient received IV antibiotics prior to skin incision. A standard midline incision was made centered over the patella. The incision was made through the skin and subcutaneous tissue. A medial parapatellar tendon approach was performed. Care was taken to preserve tissue along the medial aspect of the patella. And to protect the patella tendon. The deep MCL was released off the medial tibia. The infra patella fat pad was excised. Knee was brought into flexion. Patient noted to have grade 4 arthritic changes all 3 compartments. The entry hole was made for the intramedullary femoral guide. The guide was seated in 6 degrees of valgus. Anterior cut was made followed by the distal cut. The ACL the PCL the medial and the lateral menisci were excised. The tibia was subluxed forward. The entry hole was made for the intramedullary tibial guide. Guide was seated to resect 2 mm off the more abnormal side. The knee was brought into flexion the distal femur was sized to a 7. The femoral guide was seated, the anterior cut was made followed by the posterior condylar cut, followed by the chamfer cuts. The finishing guide was seated the box cut was made and the lug holes were drilled. The tibia was sized to a 7, the tibial tray was seated and prepared with the large drill followed by the fin cutter. Trial reduction revealed full extension no varus valgus instability with the appropriate 14 PS Edith. The patella was everted and cut was made at the level of the insertion of the quadriceps and patella tendon. The patella was sized 37 the guide was seated and the lug holes are drilled. Trial reduction revealed excellent patella tracking. All trial components were removed all bony surfaces were irrigated. The tibia was cemented first followed by the femur. The 14 PS Edith was seated and the knee was brought into full extension. The patella was cemented and held in place with the patellar holding clamp. After the cement had hardened, the knee sat for 2 minutes with a Betadine saline solution. The knee was then irrigated out with 2 L of pulse irrigation. The YSABEL Nation close the knee. The extensor mechanism was closed with #2 FiberWire suture and #2 PDS suture. The subcutaneous tissue was then irrigated and closed deep with #1 PDS suture superficially with 0 PDS suture and skin was closed with skin ryan. The patient was then placed in a sterile dressing and a postoperative brace extubated and transferred to recovery room in stable condition. Anesthesia: GETFadia Surgeon: Jose R Larsen Condition: stable Disposition: PACU
[2017-05-19] MEDS: *HR* HYDROmorphone (PF) 1 MG/ML SYRINGE IVP PRN ×7 (12:58→22:07)
[2017-05-19] MEDS ORDERED: *HR* Promethazine 25 MG/ML VIAL ONE (13:12)
[2017-05-19] MEDS ORDERED: *HR* Promethazine 25 MG/ML VIAL IVP PRN (13:15)
[2017-05-19] MEDS ORDERED: *HR* HYDROmorphone (PF) 1 MG/ML SYRINGE ONE (13:30)
[2017-05-19 13:43] LABS: Hematocrit 36.8 % (35.3-44.9); Hemoglobin 11.8 g/dL (11.5-15.4)
--- NOTE | 2017-05-19 13:48 | Anesthesia Evaluation Post Op ---
Date of Encounter: 05/19/17 Time of Encounter: 13:45 - Vital Signs Vital Signs: Vital Signs/O2 Sat/Glucose, Most Current Temp Pulse Resp BP Pulse Ox 05/19/17 13:44 82 16 141/86 100 05/19/17 13:34 88 18 148/85 100 05/19/17 13:24 98.1 F 88 14 164/98 99 05/19/17 13:14 89 14 160/91 98 05/19/17 13:04 82 14 117/71 97 05/19/17 12:54 97.4 F L 83 16 129/79 98 05/19/17 11:24 78 16 124/78 99 05/19/17 11:07 83 16 133/85 99 - Lungs Lungs: Clear Ascult./Percussion - Airway Airway: Non-obstructed - Cardiovascular Regular Rate - Mental Status Mental Status: Alert & Oriented, Answers Appropriately - Pain Pain Scale: 0 - Nausea Vomiting Nausea Vomiting: Not Present - Hydration Hydration: Tolerates oral liquids - Discharge PostOp Status: Transfer Patient to floor
[2017-05-19] MEDS ORDERED: Temazepam 15 MG CAPSULE PO PRN (14:02)
[2017-05-19] MEDS ORDERED: Sennosides 8.6 MG TABLET PO PRN (14:02)
[2017-05-19] MEDS ORDERED: MOM Conc 10 ML UD.LIQ PO PRN (14:02)
[2017-05-19] MEDS ORDERED: *HR* OxyCODONE Immed Rel 5 MG TABLET PO PRN (14:02)
[2017-05-19] MEDS ORDERED: Naloxone 0.4 MG/ML INJ IVP PRN (14:02)
[2017-05-19] MEDS: *HR* OxyCODONE Immed Rel 5 MG TABLET PO PRN ×3 (14:30→23:16)
[2017-05-19] MEDS: ceFAZolin 2,000 MG in D5% in Water 100 ML IVPB SCH (16:26)
[2017-05-19] MEDS ORDERED: *HR* Enoxaparin 30 MG/0.3 ML SYRINGE SQ SCH ×2 (18:00)
[2017-05-19] MEDS ORDERED: *HR* Warfarin 4 MG TABLET PO SCH (18:00)
[2017-05-19] MEDS: *HR* Enoxaparin 120 MG/0.8 ML SYRINGE SQ SCH (18:57)
[2017-05-20] MEDS: ceFAZolin 2,000 MG in D5% in Water 100 ML IVPB SCH (00:22)
[2017-05-20] MEDS: *HR* Enoxaparin 120 MG/0.8 ML SYRINGE SQ SCH ×2 (05:43→17:10)
[2017-05-20] MEDS: *HR* OxyCODONE Immed Rel 5 MG TABLET PO PRN ×4 (05:44→19:00)
[2017-05-20] MEDS: *HR* HYDROmorphone (PF) 1 MG/ML SYRINGE IVP PRN ×5 (06:27→20:57)
[2017-05-20] MEDS: Ondansetron 4 MG/2 ML VIAL IVP PRN ×2 (06:28→12:54)
--- NOTE | 2017-05-20 06:59 | Orthopedics Progress Note ---
Date of Encounter: 05/20/17 Time of Encounter: 06:59 - Assessment and Plan (1) Status post total right knee replacement Current Visit: Yes Status: Acute (2) Hypertension Current Visit: No Status: Chronic Qualifiers: Hypertension type: unspecified Qualified Code(s): I10 - Essential (primary ) hypertension (3) Hyperlipidemia Current Visit: No Status: Chronic Qualifiers: Hyperlipidemia type: unspecified Qualified Code(s): E78.5 - Hyperlipidemia , unspecified (4) Morbid obesity Current Visit: No Status: Chronic (5) Chronic back pain Current Visit: No Status: Chronic Qualifiers: Back pain location: back pain in unspecified location Back pain laterality : unspecified Qualified Code(s): M54.9 - Dorsalgia, unspecified; G89.29 - Other chronic pain (6) Arthritis of right knee Current Visit: Yes Status: Chronic (7) Factor V Leiden Current Visit: Yes Status: Chronic (8) History of DVT (deep vein thrombosis) Current Visit: Yes Status: Chronic (9) [facility] current use of anticoagulant Current Visit: Yes Status: Chronic Subjective Interval history: Patient was seen this morning doing well without complaints. Afebrile vital signs stable. Operative extremity: Neurovascularly intact Dressing clean dry and intact Calves nontender Assessment and plan: Continue with postoperative care Hematocrit 36 Objective Vital signs: Vital Signs Temp Pulse Resp BP Pulse Ox 05/20/17 04:20 98.6 F 97 17 118/79 93 05/20/17 00:28 98.7 F 80 18 111/76 95 05/19/17 20:03 98.6 F 119 17 108/67 93 05/19/17 17:10 97.8 F 99 10 136/84 97 05/19/17 16:15 97.8 F 66 10 136/84 97 05/19/17 15:20 90 05/19/17 15:15 97.5 F L 91 12 116/76 90 05/19/17 14:50 97.6 F 86 14 122/80 94 05/19/17 14:10 98.0 F 79 14 136/91 99 05/19/17 13:54 98.1 F 80 16 144/87 99 05/19/17 13:44 82 16 141/86 100 05/19/17 13:34 88 18 148/85 100 05/19/17 13:24 98.1 F 88 14 164/98 99 05/19/17 13:14 89 14 160/91 98 05/19/17 13:04 82 14 117/71 97 05/19/17 12:54 97.4 F L 83 16 129/79 98 05/19/17 11:24 78 16 124/78 99 05/19/17 11:07 83 16 133/85 99 05/19/17 09:33 97.9 F 82 18 126/83 97 Intake and Output 05/19/17 05/19/17 05/20/17 15:59 23:59 07:59 Intake Total 100 / 100 100 / 100 Output Total 300 / 300 300 / 300 Balance -200 / -200 -200 / -200 Intake: IV Fluids 100 / 100 100 / 100 Ancef Premix 2,000 MG/100 100 / 100 ML 2,000 mg In 100 ml @ 200 mls/hr IVPB PREOP ONE Rx#:[id number] Ancef 2,000 MG In 100 / 100 Dextrose 5% 100 ML @ 200 mls/hr IVPB Q8HR MOSHE Rx#: [id number] Oral 0 / 0 Output: Urine 300 / 300 Estimated Blood Loss 300 / 300 Other: Weight 113.852 kg 116.8 kg Patient Weight 05/20/17 23:59 Weight 116.8 kg - Labs CBC & BMP: 05/19/17 13:12 - VTE Reasons for not Prescribing Prophylaxis: Not indicated-Anticoagulated or INR therapeutic Documentation of Mechanical Device: Venous foot pump, device Consult Discharge Plan - Plan Referrals: Nguyễn Avila MD [Primary Care Provider] -
[2017-05-20 07:36] LABS: Hematocrit 30.9 % (35.3-44.9)
[2017-05-20 07:53] LABS: BUN/Creatinine Ratio 12 (6-26); Blood Urea Nitrogen 9 mg/dL (7-20); Calcium 8.3 mg/dL (8.6-10.8); Carbon Dioxide 26 mEq/L (19-29); Chloride 102 mEq/L (98-109); Glucose 113 mg/dL (70-99); Osmolality,Calculated 279 (280-300); Potassium 4.3 mEq/L (3.5-4.5); Sodium 135 mEq/L (136-145); eGFR For African Americans > 60 (> 60); eGFR For Non-African Americans > 60 (> 60)
[2017-05-20 12:03] LABS: INR 1.3; Prothrombin Time 13.8 Seconds (9.4-12.1)
[2017-05-20] MEDS: *HR* Warfarin 2 MG TABLET PO SCH (17:10)
[2017-05-21] MEDS: *HR* OxyCODONE Immed Rel 5 MG TABLET PO PRN ×4 (04:06→21:34)
[2017-05-21 05:02] LABS: Hematocrit 27.8 % (35.3-44.9); Hemoglobin 9.1 g/dL (11.5-15.4)
[2017-05-21 05:08] LABS: INR 1.4; Prothrombin Time 15.4 Seconds (9.4-12.1)
[2017-05-21 05:21] LABS: BUN/Creatinine Ratio 14 (6-26); Blood Urea Nitrogen 11 mg/dL (7-20); Calcium 8.4 mg/dL (8.6-10.8); Carbon Dioxide 28 mEq/L (19-29); Chloride 99 mEq/L (98-109); Glucose 124 mg/dL (70-99); Osmolality,Calculated 277 (280-300); Sodium 133 mEq/L (136-145); eGFR For African Americans > 60 (> 60); eGFR For Non-African Americans > 60 (> 60)
[2017-05-21] MEDS: *HR* Enoxaparin 120 MG/0.8 ML SYRINGE SQ SCH ×2 (06:10→16:36)
--- NOTE | 2017-05-21 08:04 | Orthopedics Progress Note ---
Date of Encounter: 05/21/17 Time of Encounter: 08:04 - Assessment and Plan (1) Status post total right knee replacement Current Visit: Yes Status: Acute (2) Hypertension Current Visit: No Status: Chronic Qualifiers: Hypertension type: unspecified Qualified Code(s): I10 - Essential (primary ) hypertension (3) Hyperlipidemia Current Visit: No Status: Chronic Qualifiers: Hyperlipidemia type: unspecified Qualified Code(s): E78.5 - Hyperlipidemia , unspecified (4) Morbid obesity Current Visit: No Status: Chronic (5) Chronic back pain Current Visit: No Status: Chronic Qualifiers: Back pain location: back pain in unspecified location Back pain laterality : unspecified Qualified Code(s): M54.9 - Dorsalgia, unspecified; G89.29 - Other chronic pain (6) Arthritis of right knee Current Visit: Yes Status: Chronic (7) Factor V Leiden Current Visit: Yes Status: Chronic (8) History of DVT (deep vein thrombosis) Current Visit: Yes Status: Chronic (9) [facility] current use of anticoagulant Current Visit: Yes Status: Chronic (10) Acute blood loss anemia Current Visit: Yes Status: Acute Subjective Interval history: Patient was seen this morning doing well without complaints. Afebrile vital signs stable. Operative extremity: Neurovascularly intact Dressing clean dry and intact Calves nontender Assessment and plan: Continue with postoperative care Hemoglobin 9.1 asymptomatic Objective Vital signs: Vital Signs Temp Pulse Resp BP Pulse Ox 05/21/17 06:46 98.0 F 84 18 111/70 95 05/21/17 00:15 98.4 F 101 18 130/84 96 05/20/17 20:24 98.2 F 103 18 134/84 96 05/20/17 15:22 98.5 F 85 16 135/81 96 05/20/17 11:46 99.0 F 86 16 119/75 95 Intake and Output 05/20/17 05/21/17 05/21/17 23:59 07:59 15:59 Intake Total 440 / 440 400 / 400 Output Total 200 / 200 650 / 650 Balance 240 / 240 -250 / -250 Intake: Oral 440 / 440 400 / 400 Output: Urine 200 / 200 650 / 650 Other: Meal Dinner Percent of Meal Consumed 30% Weight 116.2 kg Patient Weight 05/21/17 23:59 Weight 116.2 kg - Labs CBC & BMP: 05/21/17 04:40 05/21/17 04:40 Labs: Abnormal lab results Hgb 9.1 g/dL (11.5-15.4) L 05/21/17 04:40 Hct 27.8 % (35.3-44.9) L 05/21/17 04:40 PT 15.4 Seconds (9.4-12.1) H 05/21/17 04:40 Sodium 133 mEq/L (136-145) L 05/21/17 04:40 Glucose 124 mg/dL (70-99) H 05/21/17 04:40 Calculated Osmolality 277 (280-300) L 05/21/17 04:40 Calcium 8.4 mg/dL (8.6-10.8) L 05/21/17 04:40 - VTE Reasons for not Prescribing Prophylaxis: Not indicated-Anticoagulated or INR therapeutic Documentation of Mechanical Device: Venous foot pump, device Consult Discharge Plan - Plan Referrals: Nguyễn Avila MD [Primary Care Provider] -
[2017-05-21] MEDS: Ondansetron 4 MG/2 ML VIAL IVP PRN (09:17)
--- NOTE | 2017-05-21 11:11 | Event Note ---
Date of Encounter: 05/21/17 Time of Encounter: 11:09 Patient c/o calf pain to nurse. On exam - tenderness to posterior calf with warmth, no redness or induration noted. Given patient's history of Factor V and per patient h/o clot in right LE - will proceed with Doppler. Continue bridge from Lovenox to Coumadin. INR not yet therapeutic. Continue to ice operative extremity. Patient also now desiring inpatient rehab - will put referral - social work aware.
[2017-05-21] MEDS: *HR* Warfarin 2 MG TABLET PO SCH (16:36)
--- NOTE | 2017-05-21 19:05 | Venous Imaging Report ---
LE Venous Duplex Patient Name:Hanna Bay Order Number:[id number] Procedure Date:05/21/2017 Date:8Age:57 yrs Gender:Female Location:[facility] Room #: [id number] Studio Artist:Daya Ponce RDCS Referring MD:Jose R Larsen MD warehouse general laborer:Nguyễn Avila MD Reading MD:Rios Woodson MD Primary Indications:Pain in limb Secondary Indications: Risk Factors Yes/No Hx of DVT Yes Anticoagulants Yes Impressions: Normal right lower extremity deep and superficial venous exam. Recommendations: Preliminary noted in pt EMR. Findings Venous Duplex Results: Right: Venous imaging of the lower extremity reveals full patency and normal vessel compressibility of the right distal iliac, right common femoral, right superficial femoral, right popliteal, right posterior tibial, right peroneal, right great saphenous and right lesser saphenous. Doppler signals in the evaluated veins were normal. Lower Extremity Venous Duplex Side Vein Compress Spontaneous Flow Augment Diameter (cm) Depth (cm) Right Distal Iliac Normal Yes Phasic Yes Right Common Femoral Normal Yes Phasic Yes Right Superficial Femoral Normal Yes Phasic Yes Right Popliteal Normal Yes Phasic Yes Right Posterior Tibial Normal Yes Phasic Yes Right Peroneal Normal Yes Phasic Yes Right Great Saphenous Normal Yes Phasic Yes Right Lesser Saphenous Normal Yes Phasic Yes Updated by Rios Woodson MD on 05/21/2017 6:58:40 PM electronically signed on 05/21/2017 6:58:51 PM with status of Final
[2017-05-22] MEDS: *HR* OxyCODONE Immed Rel 5 MG TABLET PO PRN ×2 (05:23→10:39)
[2017-05-22] MEDS: *HR* Enoxaparin 120 MG/0.8 ML SYRINGE SQ SCH (05:23)
[2017-05-22 07:00] VITALS: BP 98/62
--- NOTE | 2017-05-22 07:57 | Orthopedics Progress Note ---
Date of Encounter: 05/22/17 Time of Encounter: 07:57 - Assessment and Plan (1) Status post total right knee replacement Current Visit: Yes Status: Acute (2) Hypertension Current Visit: No Status: Chronic Qualifiers: Hypertension type: unspecified Qualified Code(s): I10 - Essential (primary ) hypertension (3) Hyperlipidemia Current Visit: No Status: Chronic Qualifiers: Hyperlipidemia type: unspecified Qualified Code(s): E78.5 - Hyperlipidemia , unspecified (4) Morbid obesity Current Visit: No Status: Chronic (5) Chronic back pain Current Visit: No Status: Chronic Qualifiers: Back pain location: back pain in unspecified location Back pain laterality : unspecified Qualified Code(s): M54.9 - Dorsalgia, unspecified; G89.29 - Other chronic pain (6) Arthritis of right knee Current Visit: Yes Status: Chronic (7) Factor V Leiden Current Visit: Yes Status: Chronic (8) History of DVT (deep vein thrombosis) Current Visit: Yes Status: Chronic (9) [facility] current use of anticoagulant Current Visit: Yes Status: Chronic (10) Acute blood loss anemia Current Visit: Yes Status: Acute Subjective Interval history: Patient was seen this morning doing well without complaints. Afebrile vital signs stable. Operative extremity: Neurovascularly intact Dressing clean dry and intact Calves nontender Assessment and plan: Continue with postoperative care Stable for discharge today Doppler negative Objective Vital signs: Vital Signs Temp Pulse Resp BP Pulse Ox 05/22/17 06:59 99.0 F 115 18 98/62 96 05/22/17 00:28 99.2 F 109 16 96/54 96 05/21/17 21:33 98.9 F 99 18 114/59 92 05/21/17 15:21 98.5 F 101 18 109/63 93 05/21/17 11:32 98.1 F 97 16 104/67 95 Intake and Output 05/21/17 05/21/17 05/22/17 15:59 23:59 07:59 Intake Total 50 / 50 60 / 60 Balance 50 / 50 60 / 60 Intake: Oral 50 / 50 60 / 60 Other: Meal Breakfast Dinner Percent of Meal Consumed 0% 20% - Labs CBC & BMP: 05/21/17 04:40 05/21/17 04:40 Labs: Abnormal lab results Hgb 9.1 g/dL (11.5-15.4) L 05/21/17 04:40 Hct 27.8 % (35.3-44.9) L 05/21/17 04:40 PT 15.4 Seconds (9.4-12.1) H 05/21/17 04:40 Sodium 133 mEq/L (136-145) L 05/21/17 04:40 Glucose 124 mg/dL (70-99) H 05/21/17 04:40 Calculated Osmolality 277 (280-300) L 05/21/17 04:40 Calcium 8.4 mg/dL (8.6-10.8) L 05/21/17 04:40 - VTE Reasons for not Prescribing Prophylaxis: Not indicated-Anticoagulated or INR therapeutic Documentation of Mechanical Device: Venous foot pump, device Consult Discharge Plan - Plan Referrals: Nguyễn Avila MD [Primary Care Provider] -
--- NOTE | 2017-05-22 09:04 | Physician Discharge Referral ---
ExtendedCare Referral Info Transfer To: [facility] Provider in Charge: Dr. Jose R Larsen Institutional Level of Care: Skilled - Diagnosis (1) Status post total knee replacement Priority: Primary Status: Acute (2) Arthritis of right knee Priority: Secondary Status: Chronic (3) Factor V Leiden Priority: Secondary Status: Chronic (4) History of DVT (deep vein thrombosis) Priority: Secondary Status: Chronic (5) custodial current use of anticoagulant Priority: Secondary Status: Chronic (6) Hypertension Priority: Secondary Status: Chronic Expected Duration of Placement: 30 days Prognosis: Good Aware of Diagnosis: Patient Aware of Prognosis: Patient - Transfer Medications Home Medications: Citalopram Hydrobromide [Celexa] 40 mg PO DAILY 05/02/16 [History] Pravastatin Sodium 40 mg PO DAILY 01/16/17 [History] Doxepin HCl 50 mg PO HS PRN 05/19/17 [History] Enoxaparin [Lovenox] 120 mg SQ Q12HR 05/19/17 [History] Lisinopril-HCTZ 10-12.5 [Prinzide 10-12.5] 1 tab PO DAILY 05/19/17 [History] Oxycodone HCl/Acetaminophen [Percocet 10-325 mg Tablet] 1 tab PO Q6H PRN [History] Warfarin [Coumadin] 2 mg PO [id number] 05/19/17 [History] Warfarin [Coumadin] 4 mg PO MO 05/19/17 [History] Allergies/Adverse Reactions: Allergies NSAIDS (Non-Steroidal Anti-Inflamma Adverse Reaction (Unknown, Verified 14:46) Gastrointestinal Upset iodine Adverse Reaction (Verified 05/19/17 10:38) Rash - Respiratory Orders Smoking Cessation: Smoking cessation has been advised. For more information, call the [place] Tobacco Quit Line at 9-947-TUVR-NOW. - Ancillary Orders May use pressure relief devices daily prn, May go on KYLIE w/family/respon constitution party w /meds at nurse discretion PRN, May consult with Dentist, Fine Dining Server, Pharmacy Consultant PRN - Mobility Orders Chair, Ambulate - Rehabiliation Orders Rehab Potential: Good Rehab Orders: Evaluation for Physical Therapy, Evaluation for Occupational Therapy Other: Total Knee replacement Precautions x 6 weeks Apply cold therapy wrap 3-6x/day for 20 minutes at a time. Encourage ambulation throughout the day and incentive spirometer 10x/hour. Elevate affected extremity above heart as tolerated. Brace: Wear knee immobilizer at night x 2 weeks. - Treatments Skin tear care topically daily PRN per policy List/Other: Opsite placed. Keep dressing intact until first follow up appointment. If > 50% saturated, notify office, remove dressing and place appropriate dressing back in place. Dressing is water resistant, not water-proof. OK to shower, but do not get dressing wet. - Diet Orders Regular CERTIFICATION: I certify that the transfer of the above named patient to an Extended Care Facility is necessary for the continuing treatment of the diagnosis listed. The above information is true and accurate reflection of patient's current condition. Confidential - Redisclosure prohibited without a patient's written consent.
== END 2017-05-22 11:33 | disposition home or self-care (01) | DRG 470 ==
LOC: SAMDAY 09:14 → 3NENU 13:51
PROVIDERS: ADMIT Orthopaedic Surgery; ATTEND Orthopaedic Surgery